=== PATIENT | male | born 1965 | race Caucasian/White ===

== ENCOUNTER 2019-01-05 12:00 | Day surgery (SDC) | payer BC ==
[2019-01-05] MEDS ORDERED: MIDAZOLAM 2 MG/2 ML VIAL IVP ONE (12:01)
[2019-01-05] MEDS ORDERED: fentaNYL 100 MCG/2 ML VIAL IVP ONE (12:01)
[2019-01-05] MEDS ORDERED: PROPOFOL 200 MG/20 ML VIAL IVP ONE (12:01)
[2019-01-05] MEDS ORDERED: LACTATED RINGERS 1,000 ML IV ONE ×2 (12:38→15:02)
--- NOTE | 2019-01-05 12:56 | ANESTHESIA ---
Pre-Anesthesia VS, & Labs - Diagnosis Hemorrhoids - Procedure Hemorrhoid banding Vital Signs: Temp Pulse Resp BP Pulse Ox 37.1 C 93 18 156/93 H 100 01/05/19 12:15 01/05/19 12:15 01/05/19 12:15 01/05/19 12:15 01/05/19 12:15 Height 6 ft 2 in Weight (kg) 106.7 kg - NPO >8 hours Home Medications and Allergies Home Medications: Ambulatory Orders Amlodipine Besylate 10 mg PO DAILY 12/27/18 Cyclobenzaprine [Flexeril] 10 mg PO TID PRN 12/27/18 Escitalopram Oxalate [Lexapro] 20 mg PO DAILY 12/27/18 Meloxicam 15 mg PO DAILY 12/27/18 Tramadol HCl 50 mg PO TID PRN 12/27/18 Trazodone HCl 150 mg PO QPM 12/27/18 Valsartan/Hydrochlorothiazide [Valsartan-Hctz 160-25 mg Tab] 1 each PO DAILY 12/27/18 Amlodipine Besylate 10 mg PO DAILY 12/27/18 Cyclobenzaprine [Flexeril] 10 mg PO TID PRN 12/27/18 Escitalopram Oxalate [Lexapro] 20 mg PO DAILY 12/27/18 Meloxicam 15 mg PO DAILY 12/27/18 Tramadol HCl 50 mg PO TID PRN 12/27/18 Trazodone HCl 150 mg PO QPM 12/27/18 Valsartan/Hydrochlorothiazide [Valsartan-Hctz 160-25 mg Tab] 1 each PO DAILY 12/27/18 Allergies/Adverse Reactions: Allergies Allergy/AdvReac Type Severity Reaction Status Date / Time No Known Drug Allergies Allergy Verified 12/27/18 13:58 Anes History & Medical History - Anesthetic History Anesthesia Complications: reports: No previous complications Family history of Anesthesia Complications: Denies Family history of Malignant Hyperthermia: Denies - Medical History Cardiovascular: reports: Hypertension, High cholesterol Pulmonary: reports: None Gastrointestinal: reports: Hiatal hernia Urinary: reports: None Musculoskeletal: reports: Osteoarthritis Endocrine/Autoimmune: reports: None Skin: reports: None - Surgical History General: Other Orthopedic: Spine surgery (cervical spine) Exam General: Alert, Oriented x3, Cooperative Dental: WNL Mouth Opening: Greater than 4 Fingerbreadths Neck Mobility: Reduced (side to side) Mallampati classification: II Thyromental Distance: 4-6 cm Respiratory: Lungs clear, Normal breath sounds, No respiratory distress Cardiovascular: Regular rate Neurological: Normal speech Cognitive Status: Within normal limits Plan Anesthesia Type: General (backup), MAC Consent for Procedure(s) Verified and Reviewed: Yes Code Status: Attempt Resuscitation ASA classification: 2-Mild systemic disease Is this case an emergency?: No
[2019-01-05] MEDS ORDERED: BUPIVACAINE 0.5%-EPI 1:200000 PF 30 ML VIAL ONE (14:35)
[2019-01-05] MEDS ORDERED: LIDOCAINE-MPF 1% 30 ML VIAL ONE (14:35)
[2019-01-05] MEDS ORDERED: IOVERSOL 320 100 ML VIAL IVP ONE ×2 (15:20→15:55)
[2019-01-05 15:21] LABS: BASOPHILS % (AUTO) 0.5 %; EOSINOPHILS # (AUTO) 0.3 10^3/uL (0.0-0.7); EOSINOPHILS % (AUTO) 3.4 %; HGB - HEMOGLOBIN 9.3 g/dL (14.0-18.0); LYMPHOCYTES # (AUTO) 1.6 10^3/uL (1.5-3.5); LYMPHOCYTES % (AUTO) 19.2 %; MEAN CORPUSCULAR HEMOGLOBIN 23.2 pg (27.0-31.0); MEAN CORPUSCULAR HGB CONC 32.4 g/dL (32.0-36.0); MEAN CORPUSCULAR VOLUME 71.6 fL (80.0-94.0); MEAN PLATELET VOLUME 8.3 fL (7.4-11.4); MONOCYTES # (AUTO) 0.6 10^3/uL (0.0-1.0); MONOCYTES % (AUTO) 7.1 %; NEUTROPHILS # (AUTO) 5.6 10^3/uL (1.5-6.6); NEUTROPHILS % (AUTO) 69.4 %; PLT - PLATELET COUNT 307 10^3/uL (130-450); RED BLOOD COUNT 4.01 10^6/uL (4.70-6.10); RED CELL DISTRIBUTION WIDTH 15.5 % (12.0-15.0); WHITE BLOOD COUNT 8.1 x10^3/uL (4.8-10.8)
[2019-01-05 15:33] LABS: ALBUMIN 3.6 g/dL (3.2-5.5); ALBUMIN/GLOBULIN RATIO 1.3 (1.0-2.2); BILIRUBIN,TOTAL 0.7 mg/dL (0.2-1.0); CALCIUM 8.5 mg/dL (8.5-10.3); CREATININE 0.6 mg/dL (0.6-1.2); TOTAL PROTEIN 6.3 g/dL (6.7-8.2)
--- NOTE | 2019-01-05 16:32 | CT Report ---
Reason: Rectal mass Procedure Date: 01/05/2019 Accession Number: [id number] / [id number] Procedure: CT - Abdomen/Pelvis W CPT Code: FULL RESULT: EXAM: CT ABDOMEN AND PELVIS EXAM DATE: 01/05/2019 03:54 PM. CLINICAL HISTORY: Rectal mass. COMPARISONS: None. TECHNIQUE: Routine helical CT imaging was performed through the abdomen and pelvis. IV contrast: Optiray 320 100 mL. Enteric contrast: No. Reconstructions: Coronal and sagittal. In accordance with CT protocol optimization, one or more of the following dose reduction techniques were utilized for this exam: automated exposure control, adjustment of mA and/or KV based on patient size, or use of iterative reconstructive technique. FINDINGS: Lung Bases: Unremarkable. Liver: No evidence of intrahepatic metastatic disease. There is an indeterminate approximate 10 x 29 mm diameter steve hepatis lymph node (image 30, series 3). Gallbladder/Bile Ducts: Unremarkable. Spleen: Normal. Pancreas: Normal. Adrenal Glands: There is an indeterminant 2 cm maximal diameter right adrenal mass; on postcontrast imaging, Hounsfield units = 25.2. Normal left adrenal. Kidneys: Normal. No masses or hydronephrosis. Peritoneal Cavity/Bowel: There is no pathologic abdominal or retroperitoneal adenopathy. There is an eccentric posterior rectal neoplasm with approximate 3 cm wall thickness. There is presacral haziness. There are numerous suspicious presacral and bilateral perirectal lymph nodes, most less than 10 mm diameter. There is a dominant 11 mm diameter node in the superior presacral space. Pelvic Organs: Unremarkable bladder and prostate gland. Vasculature: No aneurysms or other significant abnormality. Bones: No significant abnormality. Other: None. IMPRESSION: 1. Bulky rectal neoplasm as described above. 2. Numerous small suspicious presacral and bilateral perirectal lymph nodes. Consider PET/CT for staging. 3. No evidence of abdominal or retroperitoneal adenopathy. 4. Indeterminate steve hepatis lymph node as described above. 5. No evidence of intrahepatic metastatic disease. 6. There is an incidental 2 cm diameter indeterminate right adrenal mass, possibly representing an adenoma. Consider noncontrast CT to evaluate for intralesional fat. RADIA
[2019-01-05 16:54] VITALS: BP 133/80
== END 2019-01-05 12:01 | disposition home or self-care (01) ==
LOC: SDS 12:00
PROVIDERS: ATTEND Surgery
PROC: 0DBP8ZX Excision of Rectum, Via Natural or Artificial Opening Endoscopic, Diagnostic (ICD-10-PCS; principal; 2019-01-05 12:30)
DX: C20 Malignant neoplasm of rectum (principal); R59.0 Localized enlarged lymph nodes; E27.8 Other specified disorders of adrenal gland; F17.220 Nicotine dependence, chewing tobacco, uncomplicated; I10 Essential (primary) hypertension; Z79.899 Other long term (current) drug therapy
CPT/HCPCS: 36415; 45331; 74177; 80053; 82378; 85025; J7120; Q9967

== ENCOUNTER 2019-01-19 11:47 | Outpatient (CLI) | payer BC ==
[2019-01-19 13:22] LABS: CREATININE 0.6 mg/dL (0.6-1.2)
== END 2019-01-19 11:48 | disposition home or self-care (01) ==
LOC: LAB 11:47
PROVIDERS: ATTEND Surgery
DX: C20 Malignant neoplasm of rectum (principal)
CPT/HCPCS: 36415; 82565; 84520

== ENCOUNTER 2019-05-16 11:48 | Outpatient (CLI) | payer BC ==
[2019-05-16 12:20] LABS: BASOPHILS % (AUTO) 0.7 %; EOSINOPHILS # (AUTO) 0.1 10^3/uL (0.0-0.7); EOSINOPHILS % (AUTO) 1.2 %; HGB - HEMOGLOBIN 12.4 g/dL (14.0-18.0); LYMPHOCYTES # (AUTO) 0.6 10^3/uL (1.5-3.5); LYMPHOCYTES % (AUTO) 10.6 %; MEAN CORPUSCULAR HEMOGLOBIN 27.3 pg (27.0-31.0); MEAN CORPUSCULAR HGB CONC 33.6 g/dL (32.0-36.0); MEAN CORPUSCULAR VOLUME 81.1 fL (80.0-94.0); MEAN PLATELET VOLUME 8.3 fL (7.4-11.4); MONOCYTES # (AUTO) 0.5 10^3/uL (0.0-1.0); MONOCYTES % (AUTO) 8.5 %; NEUTROPHILS # (AUTO) 4.4 10^3/uL (1.5-6.6); NEUTROPHILS % (AUTO) 78.5 %; PLT - PLATELET COUNT 263 10^3/uL (130-450); RED BLOOD COUNT 4.55 10^6/uL (4.70-6.10); RED CELL DISTRIBUTION WIDTH 21.3 % (12.0-15.0); WHITE BLOOD COUNT 5.7 x10^3/uL (4.8-10.8)
[2019-05-16 12:40] LABS: INR 1.1 (0.8-1.2); PT - PROTHROMBIN TIME 12.4 secs (9.9-12.6)
[2019-05-16 12:41] LABS: ALBUMIN 4.1 g/dL (3.2-5.5); ALBUMIN/GLOBULIN RATIO 1.2 (1.0-2.2); BILIRUBIN,TOTAL 0.6 mg/dL (0.2-1.0); CALCIUM 9.6 mg/dL (8.5-10.3); CREATININE 0.7 mg/dL (0.6-1.2); TOTAL PROTEIN 7.4 g/dL (6.7-8.2)
[2019-05-16 12:52] LABS: HEMOGLOBIN A1C 0.42 g/dL; HEMOGLOBIN A1C % 5.4 % (4.6-6.2); PLATELET ESTIMATE, MANUAL NORMAL (130-450,000) (NORMAL); PLATELET MORPHOLOGY NORMAL APPEARANCE (NORMAL)
== END 2019-05-16 11:49 | disposition home or self-care (01) ==
LOC: LAB 11:48
PROVIDERS: ATTEND Surgery
DX: C20 Malignant neoplasm of rectum (principal); C77.5 Secondary and unspecified malignant neoplasm of intrapelvic lymph nodes
CPT/HCPCS: 36415; 80053; 83036; 85025; 85610; 93005

== ENCOUNTER 2019-07-29 08:07 | Day surgery (SDC) | payer BC ==
[2019-07-29] MEDS ORDERED: LIDOCAINE 1% 50 ML MDV ONE (08:22)
[2019-07-29] MEDS ORDERED: ceFAZolin 1 GM VIAL ONE (08:23)
[2019-07-29] MEDS ORDERED: LACTATED RINGERS 1,000 ML IV ONE (08:31)
[2019-07-29] MEDS ORDERED: BUPIVACAINE 0.5% PF 30 ML VIAL ONE (08:33)
--- NOTE | 2019-07-29 08:39 | ANESTHESIA ---
Pre-Anesthesia VS, & Labs - Diagnosis Rectal Cancer - Procedure mediport placement Vital Signs: Temp Pulse Resp BP Pulse Ox 36.5 C 95 18 137/92 H 100 07/29/19 08:05 07/29/19 08:05 07/29/19 08:05 07/29/19 08:05 07/29/19 08:05 Height 6 ft 2 in Weight (kg) 111.5 kg - NPO >8 hours Home Medications and Allergies Home Medications: Ambulatory Orders Famotidine 20 mg PO 07/29/19 Amlodipine Besylate 10 mg PO DAILY 12/27/18 Cyclobenzaprine [Flexeril] 10 mg PO TID PRN 12/27/18 Escitalopram Oxalate [Lexapro] 20 mg PO DAILY 12/27/18 Tramadol HCl 50 mg PO TID PRN 12/27/18 Trazodone HCl 150 mg PO QPM 12/27/18 Valsartan/Hydrochlorothiazide [Valsartan-Hctz 160-25 mg Tab] 1 each PO DAILY 12/27/18 Famotidine 20 mg PO 07/29/19 Allergies/Adverse Reactions: Allergies Allergy/AdvReac Type Severity Reaction Status Date / Time No Known Drug Allergies Allergy Verified 12/27/18 13:58 Anes History & Medical History - Anesthetic History Anesthesia Complications: reports: No previous complications - Medical History Cardiovascular: reports: Hypertension, High cholesterol Pulmonary: reports: None Gastrointestinal: reports: Hiatal hernia Urinary: reports: None Musculoskeletal: reports: Osteoarthritis Endocrine/Autoimmune: reports: None Skin: reports: None - Surgical History General: Other Orthopedic: Spine surgery Exam General: Alert Dental: WNL Mallampati classification: II Thyromental Distance: greater than 6 cm Respiratory: Lungs clear Plan Anesthesia Type: General, MAC Consent for Procedure(s) Verified and Reviewed: Yes Code Status: Attempt Resuscitation ASA classification: 2-Mild systemic disease Is this case an emergency?: No
[2019-07-29] MEDS ORDERED: CEFAZOLIN SODIUM IN 0.9 % NACL 2 GM/100 ML BAG IV ONE (08:45)
[2019-07-29] MEDS ORDERED: MIDAZOLAM 2 MG/2 ML VIAL IVP ONE (08:54)
[2019-07-29] MEDS ORDERED: PROPOFOL 200 MG/20 ML VIAL IVP ONE (08:54)
[2019-07-29] MEDS ORDERED: LIDOCAINE-MPF 2% 5 ML VIAL IM ONE (08:54)
[2019-07-29] MEDS ORDERED: KETAMINE 500 MG/10 ML VIAL IVP ONE (08:54)
[2019-07-29] MEDS ORDERED: fentaNYL 100 MCG/2 ML VIAL IVP ONE (08:54)
[2019-07-29] MEDS ORDERED: BUPIVACAINE 0.5% PF 30 ML VIAL INFIL ONE (09:07)
[2019-07-29] MEDS ORDERED: LIDOCAINE 1% 50 ML MDV SUBQ ONE (09:08)
[2019-07-29] MEDS ORDERED: IBUPROFEN 600 MG TABLET PO PRN (10:36)
[2019-07-29] MEDS ORDERED: ACETAMINOPHEN 325 MG TABLET PO PRN (10:36)
[2019-07-29] MEDS ORDERED: oxyCODONE 5 MG TABLET PO PRN (10:36)
[2019-07-29] MEDS ORDERED: KETOROLAC 15 MG/ML VIAL ONE (10:44)
[2019-07-29] MEDS ORDERED: ACETAMINOPHEN 1,000 MG/100 ML 100 ML IV ONE (10:44)
[2019-07-29] MEDS ORDERED: oxyCODONE 5 MG TABLET ONE (10:56)
[2019-07-29 11:44] VITALS: BP 138/98
--- NOTE | 2019-07-29 15:12 | OPERATIVE REPORT ---
DATE OF SERVICE: 07/29/2019 Physician: Leif Valladares MD PREOPERATIVE DIAGNOSIS: History of rectal cancer and need for adjuvant chemotherapy. POSTOPERATIVE DIAGNOSIS: History of rectal cancer and need for adjuvant chemotherapy. PROCEDURE PERFORMED: Right subclavian 8-Setswana PowerPort placement. Fluoroscopic interpretation. SURGEON: Isma Valladares MD HEEL BLACKER: None. ANESTHESIA: Monitored anesthesia care. IV Sedation and local anesthesia. COMPLICATIONS: None. FINDINGS: Good PowerPort placement with the tip at the junction of the superior vena cava and the atrium. The PowerPort aspirated and flushed very easily at completion. ESTIMATED BLOOD LOSS: 50 mL INDICATIONS: The patient is a 54-year-old gentleman with history of rectal cancer. He underwent neoadjuvant chemotherapy, radiation and surgery. He has recovered nicely and now presents for Port-A-Cath placement for adjuvant chemotherapy. Risks discussed. Alternatives discussed. All questions answered and consent obtained. DESCRIPTION OF PROCEDURE: The patient was properly identified, brought to the operating room and placed in supine position. Monitored anesthesia care and IV sedation was given. Both arms were tucked. A towel roll was placed under his upper spine. He was prepped and draped in a sterile fashion. Sequential compression devices were used and preoperative IV antibiotics were given. The left subclavian vein was easily accessed on first pass. Guidewire was placed, which would cross the midline; however, would not go down the superior vena cava. The guidewire was drawn back and manipulated multiple times while under fluoroscopic guidance; however, still would not go down towards the heart. I did not believe accessing the left subclavian from a different position would be helpful. The right subclavian vein was then easily accessed again first pass of the needle. Guidewire was placed. A 3.5 cm incision was then made in the right upper chest and pocket created for the port. Port-A-Cath tubing was pulled through a subcutaneous tunnel up towards a guidewire. A dilator pull-away sheath was then placed and Port-A-Cath tubing easily placed. Port-A-Cath tubing was manipulated while under fluoroscopy until the tip was at the junction of the atrium and superior vena cava and in a location where we would aspirate easily. Port catheter was flushed with saline, multiple times. Port catheter was then trimmed to size and assembled. The port was secured to the subcutaneous tissue with 2 interrupted 4-0 Prolene sutures. The port catheter again aspirated and flushed with heparin. Dermis was closed with multiple interrupted 4-0 Vicryl suture. Skin was closed with buried interrupted or running 4-0 Monocryl subcuticular suture. Dressings were applied. He tolerated the procedure very well, was awakened and brought to recovery in good condition. TD: 07/29/2019 13:28 CAESAR
--- NOTE | 2019-08-01 02:24 | XRAY Report ---
Reason: PORTACATH Procedure Date: 07/29/2019 Accession Number: [id number] / [id number] Procedure: FL - OR Port-A-Cath CPT Code: Final Report FULL RESULT: EXAM: FLUOROSCOPIC GUIDANCE EXAM DATE: 07/29/2019 12:59 PM. CLINICAL HISTORY: PORTACATHETER. COMPARISON: None. FINDINGS IMPRESSION: Fluoroscopic guidance provided for Port-A-Cath placement. Total fluoroscopy time: 0.4 minutes . Number of images: 5. Please refer to the report of the procedure performing provider with regards to pertinent findings, technique and instrument location.
== END 2019-07-29 08:08 | disposition home or self-care (01) ==
LOC: SDS 08:07
PROVIDERS: ATTEND Surgery
PROC: 02HV33Z Insertion of Infusion Device into Superior Vena Cava, Percutaneous Approach (ICD-10-PCS; principal; 2019-07-29 09:00)
DX: C20 Malignant neoplasm of rectum (principal); I10 Essential (primary) hypertension; F17.220 Nicotine dependence, chewing tobacco, uncomplicated
CPT/HCPCS: 36561; A9270; C1788; J0131; J0690; J7120

== ENCOUNTER 2020-04-12 09:23 | Day surgery (SDC) | payer BC ==
[2020-04-12] MEDS ORDERED: LACTATED RINGERS 1,000 ML IV ONE ×2 (09:57→11:04)
[2020-04-12] MEDS ORDERED: fentaNYL 250 MCG/5 ML VIAL ONE (10:30)
[2020-04-12] MEDS ORDERED: MIDAZOLAM 2 MG/2 ML VIAL ONE ×3 (10:30→10:48)
[2020-04-12 11:17] VITALS: BP 133/84
--- OUTSIDE RECORDS SUMMARY | 2020-04-18 01:04 | EXTERNAL MEDICAL SUMMARY RPT | Continuity of Care Document ---
:1965 Demographics Phone Unavailable Preferred Language Tongan Marital Status Unknown Episcopal Affiliation Unknown Race Unknown Ethnic Group Unknown Author Organization [facility] Address [address] [place] [address] Phone Care Team Providers Name Role Phone Holiday Unavailable Unavailable PA-C Unavailable Unavailable Problems date description facility 2019-01-05 12:00 MALIGNANT NEOPLASM OF RECTUM [facility] 2019-01-05 12:00 OTHER SPECIFIED DISORDERS OF [facility] ADRENAL GLAND 2019-01-05 12:00 NICOTINE DEPENDENCE, CHEWING [facility] TOBACCO, UNCOMPLICATED 2019-01-05 12:00 ESSENTIAL (PRIMARY) [facility] HYPERTENSION 2019-01-05 12:00 LOCALIZED ENLARGED LYMPH NODES [facility] 2019-01-05 12:00 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 [facility] THERAPY 2019-01-19 11:47 MALIGNANT NEOPLASM OF RECTUM [facility] 2019-05-16 11:48 MALIGNANT NEOPLASM OF RECTUM [facility] 2019-05-16 11:48 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 2019-07-29 08:07 MALIGNANT NEOPLASM OF RECTUM [facility] 2019-07-29 08:07 NICOTINE DEPENDENCE, CHEWING [facility] TOBACCO, UNCOMPLICATED 2019-07-29 08:07 ESSENTIAL (PRIMARY) [facility] HYPERTENSION 2020-04-04 00:00:00 Health-related behavior [facility] [place] [facility] 2020-04-04 00:00:00 Tobacco use and exposure [facility] [place] [facility] 2020-04-04 00:00:00 Exercise [facility] 2020-04-04 00:00:00 Details of drug misuse behavior [facility] [place] [facility] 2020-04-04 00:00:00 [facility] 2020-04-04 00:00:00 Tobacco smoking status [facility] [place] [facility] 2020-04-04 00:00:00 Total [facility]? [facility] [place] [facility] 2020-04-04 00:00:00 Former sm[facility] Allergies date description facility ADHESIVE \T\ [facility] ER[facility]THROM[facility]CIN [facility] L[facility]IL [facility] MOR[facility]INE [facility] OXYCODONE [facility] POLLEN EXTRACT [facility] PRED[facility]ISONE [facility] SULFASALAZINE [facility] NO KNOWN ENVIRONMENTAL ALLERGIES [facility] AMOXICILLIN TRIHYDRATE [facility] PENICILLINS [facility] POTASSIUM CLAVULANATE [facility] SERTRALINE HCL [facility] Medications date description facility 2020-02-15 00:00:00 null [facility] [place] [facility] 2020-03-14 00:00:00 [facility] [place] [facility] 2020-03-14 00:00:00 [facility] [place] [facility] 2020-03-14 00:00:00 CYCLOBENZAPRINE HCL [facility] [place] [facility] 2020-03-14 00:00:00 CYCLOBENZAPRINE HCL [facility] [place] [facility] 2020-04-04 00:00:00 null [facility] [place] [facility] 2020-04-04 00:00:00 null [facility] [place] [facility] 2020-04-04 00:00:00 NA SULFATE-K SULFATE-MG SULF [facility] [place] [facility] 2020-04-04 00:00:00 NA SULFATE-K SULFATE-MG SULF [facility] [place] [facility] Social History date description facility 2020-04-04 00:00:00 [facility] Social History date description facility 2020-04-04 00:00:00 [facility] [id number]
== END 2020-04-12 09:24 | disposition home or self-care (01) ==
LOC: SDS 09:23
PROVIDERS: ATTEND Surgery
PROC: 0DBL8ZZ Excision of Transverse Colon, Via Natural or Artificial Opening Endoscopic (ICD-10-PCS; 2020-04-12)
PROC: 0DBK8ZZ Excision of Ascending Colon, Via Natural or Artificial Opening Endoscopic (ICD-10-PCS; principal; 2020-04-12 10:30)
DX: Z08 Encounter for follow-up examination after completed treatment for malignant neoplasm (principal); Z85.048 Personal history of other malignant neoplasm of rectum, rectosigmoid junction, and anus; D12.2 Benign neoplasm of ascending colon; D12.3 Benign neoplasm of transverse colon; I10 Essential (primary) hypertension
CPT/HCPCS: 45380; J3010; J7120; 88305

== ENCOUNTER 2020-08-07 10:51 | Outpatient (CLI) | payer BC ==
[2020-08-07 11:09] LABS: BASOPHILS % (AUTO) 0.7 %; EOSINOPHILS # (AUTO) 0.1 10^3/uL (0.0-0.7); EOSINOPHILS % (AUTO) 1.8 %; HCT - HEMATOCRIT 41.5 % (42.0-52.0); HGB - HEMOGLOBIN 14.6 g/dL (14.0-18.0); LYMPHOCYTES # (AUTO) 1.3 10^3/uL (1.5-3.5); LYMPHOCYTES % (AUTO) 20.3 %; MEAN CORPUSCULAR HEMOGLOBIN 28.3 pg (27.0-31.0); MEAN CORPUSCULAR HGB CONC 35.2 g/dL (32.0-36.0); MEAN CORPUSCULAR VOLUME 80.4 fL (80.0-94.0); MEAN PLATELET VOLUME 8.6 fL (7.4-11.4); MONOCYTES # (AUTO) 0.6 10^3/uL (0.0-1.0); MONOCYTES % (AUTO) 9.8 %; NEUTROPHILS # (AUTO) 4.1 10^3/uL (1.5-6.6); NEUTROPHILS % (AUTO) 67.1 %; PLT - PLATELET COUNT 244 10^3/uL (130-450); RED BLOOD COUNT 5.16 10^6/uL (4.70-6.10); RED CELL DISTRIBUTION WIDTH 14.5 % (12.0-15.0); WHITE BLOOD COUNT 6.2 x10^3/uL (4.8-10.8)
[2020-08-07 11:28] LABS: ALBUMIN 4.6 g/dL (3.2-5.5); ALBUMIN/GLOBULIN RATIO 1.5 (1.0-2.2); ALKALINE PHOSPHATASE 104 IU/L (42-121); ALT ALANINE AMINOTRANSFERASE 32 IU/L (10-60); AST ASPARTATE AMINOTRANSFERASE 28 IU/L (10-42); BILIRUBIN,TOTAL 0.6 mg/dL (0.2-1.0); BUN - BLOOD UREA NITROGEN 15 mg/dL (6-20); CALCIUM 9.7 mg/dL (8.5-10.3); CARBON DIOXIDE - CO2 25 mmol/L (21-32); CHLORIDE 105 mmol/L (101-111); CHOL/HDL RATIO 3.9 (<5.0); CHOLESTEROL 206 mg/dL; CREATININE 0.6 mg/dL (0.6-1.2); GFR - MDRD 141 (>89); GLUCOSE 145 mg/dL (70-100); HDL CHOLESTEROL 53 mg/dL; LDL CHOLESTEROL,CALCULATED 114 mg/dL; LDL/HDL RATIO 2.2 (<3.6); POTASSIUM 3.8 mmol/L (3.5-5.0); SODIUM 139 mmol/L (135-145); TOTAL PROTEIN 7.6 g/dL (6.7-8.2); TRIGLYCERIDES 193 mg/dL; VLDL CHOLESTEROL 39 mg/dL
== END 2020-08-07 10:52 | disposition home or self-care (01) ==
LOC: LAB 10:51
PROVIDERS: ATTEND Family Medicine
DX: I10 Essential (primary) hypertension (principal); Z12.5 Encounter for screening for malignant neoplasm of prostate
CPT/HCPCS: 36415; 80053; 80061; 83721; 84153; 85025

== ENCOUNTER 2020-08-07 11:08 | Outpatient (CLI) | payer BC ==
--- NOTE | 2020-08-07 11:23 | XRAY Report ---
PROCEDURE: Shoulder 2 View LT INDICATIONS: LT SHOULDER PAIN TECHNIQUE: 2 views of the shoulder were acquired. COMPARISON: None. FINDINGS: Bones: No fractures or dislocations. No suspicious bony lesions. Visualized ribs appear intact. P eriarticular osteophyte formation at the acromioclavicular and glenohumeral joints. Soft tissues: No suspicious soft tissue calcifications. IMPRESSION: Osteoarthritis. No acute fracture. No osseous lesion. If symptoms and/or clinical suspic ion for pathology continue, further assessment with repeat plain films, or advanced imaging (e.g., CT , MRI, or bone scan) is recommended for further assessment. Reviewed by: Terrance Steel MD on 08/07/2020 11:21 AM PDT Approved by: Terrance Steel MD on 08/07/2020 11:21 AM PDT Station ID: [id number]
== END 2020-08-07 11:09 | disposition home or self-care (01) ==
LOC: DI 11:08
PROVIDERS: ATTEND Family Medicine
DX: M19.012 Primary osteoarthritis, left shoulder (principal); I10 Essential (primary) hypertension; Z12.5 Encounter for screening for malignant neoplasm of prostate
CPT/HCPCS: 36415; 80053; 80061; 83721; 84153; 85025

== ENCOUNTER 2020-09-11 07:48 | Outpatient (CLI) | payer BC ==
--- NOTE | 2020-09-11 11:39 | XRAY Report ---
PROCEDURE: Shoulder 3 View LT INDICATIONS: SHOULDER JOINT PAIN, LEFT TECHNIQUE: 4 views of the shoulder were acquired. COMPARISON: None. FINDINGS: Bones: No fractures. There Is flattening of the glenoid fossa and mild inferior sclerosis. There is asymmetric joint space loss of the glenohumeral joint inferiorly and joint space widening superiorly. Slight flattening of the humeral head with inferior spur formation. No glenohumeral joint dislocatio n. Mild spurring at the acromioclavicular joint. No suspicious bony lesions. Visualized ribs appear intact. Soft tissues: No suspicious soft tissue calcifications. IMPRESSION: 1. Moderate glenohumeral joint osteoarthritic changes, potentially remote posttraumatic. 2. No dislocation. Reviewed by: Landy Carson MD on 09/11/2020 11:37 AM PDT Approved by: Landy Carson MD on 09/11/2020 11:37 AM PDT Station ID: [id number]
== END 2020-09-11 23:59 | disposition home or self-care (01) ==
LOC: DI.N 07:48
PROVIDERS: ATTEND Physician Assistant
DX: M19.012 Primary osteoarthritis, left shoulder (principal)

== ENCOUNTER 2020-12-04 09:44 | Outpatient (CLI) | payer BC ==
[2020-12-04] MEDS ORDERED: TRIAMCINOLONE 40 MG/ML VIAL ONE (09:55)
[2020-12-04] MEDS ORDERED: BUFFERED LIDOCAINE 10 ML SYRINGE ONE (09:55)
[2020-12-04] MEDS ORDERED: ROPIVACAINE 0.5% PF 20 ML AMPULE ONE (09:55)
[2020-12-04] MEDS ORDERED: TRIAMCINOLONE 40 MG/ML VIAL IM ONE (10:40)
[2020-12-04] MEDS ORDERED: iohexoL-240 20 ML VIAL IVP ONE (10:40)
[2020-12-04] MEDS ORDERED: BUFFERED LIDOCAINE 10 ML SYRINGE IU ONE (10:41)
[2020-12-04] MEDS ORDERED: ROPIVACAINE 0.5% PF 20 ML AMPULE SUBQ ONE (10:46)
--- NOTE | 2020-12-04 13:27 | XRAY Report ---
PROCEDURE: Inj/Aspiration Major Joint INDICATIONS: PRIMARY OSTEOARTHRITIS, LEFT SHOULDER FLUORO TIME: FLUORO TIME: 0.3 min and NUMBER IMAGES: 2 TECHNIQUE: The indications, alternatives, benefits, risks, and complications of the procedure were explained to the patient. Written informed consent was obtained and placed in the chart. The patient was placed in an appropriate position on the fluoroscopy table, and a site was chosen for percutaneous access un jose fluoroscopic guidance. Local anesthetic was administered using a 1% lidocaine solution. A hypod ermic or spinal needle was then used to access the symptomatic joint. Intra-articular location of th e needle tip was confirmed by injecting a small amount of contrast, followed by steroid administratio n. The needle was then withdrawn, and a bandage applied to the puncture site. FINDINGS: Joint injected: Left glenohumeral Medications injected: amount mL of 40 mg/mL Kenalog and 0.5% Ropivacaine mixture. Complications: None. IMPRESSION: Successful fluoroscopically guided administration of steroid and anaesthetic solution into the left g lenohumeral joint. Reviewed by: Rolly Adair MD on 12/04/2020 1:26 PM PDT Approved by: Rolly Adair MD on 12/04/2020 1:26 PM PDT Station ID: [id number]
== END 2020-12-04 09:45 | disposition home or self-care (01) ==
LOC: DI 09:44
PROVIDERS: ATTEND Physician Assistant
DX: M19.012 Primary osteoarthritis, left shoulder (principal)
CPT/HCPCS: 20610; Q9966

== ENCOUNTER 2021-04-03 07:25 | Emergency (ER) | payer BC ==
[2021-04-03] MEDS ORDERED: AMOX/CLAV 875 MG/125 MG TABLET PO STA (07:32)
--- NOTE | 2021-04-03 07:34 | ED Physician Documentation ---
PD HPI HEENT - Stated complaint Stated Complaint: SINUS CONGESTIONS - Chief complaint Chief Complaint: Resp - History obtained from History obtained from: Patient, Family - Additional information Additional information: 55-year-old gentleman with colon cancer in remission and hypertension presents with sinus congestion especially on the left for the last week. Is not associated with fevers. He took a home Covid test that was negative. He has a mild cough and postnasal drip. His is worried because he was appearing short of breath last night, but he says it is just from anxiety because he cannot breathe through his mouth and he is so stuffed up. He denies actual shortness of breath. Review of Systems Constitutional: denies: Fever, Chills Nose: reports: Rhinorrhea / runny nose, Congestion, Sinus pressure / pain Throat: denies: Sore throat Cardiac: denies: Chest pain / pressure, Palpitations Respiratory: reports: Cough. denies: Dyspnea PD PAST MEDICAL HISTORY - Past Medical History Cardiovascular: Hypertension, High cholesterol Respiratory: None Endocrine/Autoimmune: None GI: Hiatal hernia : None HEENT: Chronic vision loss Psych: Anxiety, Post traumatic stress disorder Musculoskeletal: Osteoarthritis Derm: None - Past Surgical History General: Colonoscopy, Other Ortho: Spine surgery - Present Medications Home Medications: Ambulatory Orders Medication Instructions Recorded Confirmed Amlodipine Besylate 10 mg PO DAILY 12/27/18 04/03/21 Cyclobenzaprine [Flexeril] 10 mg PO TID PRN 12/27/18 04/03/21 Escitalopram Oxalate [Lexapro] 20 mg PO DAILY 12/27/18 04/03/21 Valsartan/Hydrochlorothiazide 1 each PO DAILY 12/27/18 04/03/21 [Valsartan-Hctz 160-25 mg Tab] Famotidine 20 mg PO DAILY 07/29/19 04/03/21 Amox/Clav 875/125 [Augmentin] 1 each PO Q12H #20 tablet 04/03/21 Fluticasone [Flonase] 1 sprays YASMIN BID #16 gm 04/03/21 Metoprolol Succinate [Toprol Xl] 50 mg PO DAILY 04/03/21 04/03/21 Zolpidem [Ambien] 5 mg PO HS 04/03/21 04/03/21 - Allergies Allergies/Adverse Reactions: Allergies Allergy/AdvReac Type Severity Reaction Status Date / Time No Known Drug Allergies Allergy Verified 04/03/21 07:31 PD ED PE NORMAL - Vitals Vital signs reviewed: Yes - General General: Alert and oriented X 3, No acute distress - HEENT HEENT: Pharynx benign, Other (Tenderness over the left maxillary sinus) - Neck Neck: Supple, no meningeal sign, No bony TTP - Cardiac Cardiac: RRR, No murmur - Respiratory Respiratory: No respiratory distress, Clear bilaterally - Abdomen Abdomen: Non tender - Extremities Extremities: No edema, No calf tenderness / cord - Neuro Neuro: Alert and oriented X 3 - Psych Psych: Normal mood, Normal affect Results - Vitals Vitals: Vital Signs - 24 hr 04/03/21 07:27 Temperature 35.9 C L Heart Rate 99 Respiratory 20 Rate Blood Pressure 154/97 H O2 Saturation 99 Oxygen O2 Source Room air Departure - Departure Disposition: 01 Home, Self Care Clinical Impression: Sinusitis Qualifiers: Sinusitis location: maxillary Chronicity: acute Recurrence: recurrent Qualified Code(s): J01.01 - Acute recurrent maxillary sinusitis Condition: Good Record reviewed to determine appropriate education?: Yes Instructions: ED Sinusitis Abx Tx Prescriptions: Amox/Clav 875/125 [Augmentin] 1 each PO Q12H #20 tablet Fluticasone [Flonase] 1 sprays YASMIN BID #16 gm Comments: Your prescriptions were sent electronically to [facility]. Return for new or worsening symptoms. Follow-up with your doctor in a week if not improving. Discharge Date/Time: 04/03/21 07:42
[2021-04-03 07:38] VITALS: BP 154/97
== END 2021-04-03 07:42 | disposition home or self-care (01) ==
LOC: ED 07:25
DX: J01.01 Acute recurrent maxillary sinusitis (principal); I10 Essential (primary) hypertension
CPT/HCPCS: 99282; 99283; A9270

== ENCOUNTER 2021-05-20 09:32 | Outpatient (CLI) | payer BC ==
[~2021-05-20 09:32] MED LIST: GADOBUTROL 7.5 MMOL/7.5 ML VIAL ONE; IOTHALAMATE MEGLUMINE 50 ML VIAL ONE; lidocaine 1% 20 ML MDV ONE
[2021-05-20] MEDS ORDERED: GADOBUTROL 7.5 MMOL/7.5 ML VIAL IVP ONE (12:14)
[2021-05-20] MEDS ORDERED: lidocaine 1% 20 ML MDV SUBQ ONE (12:16)
[2021-05-20] MEDS ORDERED: IOTHALAMATE MEGLUMINE 50 ML VIAL IVP ONE (12:18)
--- NOTE | 2021-05-20 14:25 | XRAY Report ---
PROCEDURE: Arthrogram Needle Placement INDICATIONS: IMPINGEMENT SYNDROME OF LEFT SHOULDER TECHNIQUE: The indications, alternatives, benefits, risks, and complications of the procedure were explained to the patient. Written informed consent was obtained and placed in the chart. The shoulder was examin ed fluoroscopically and a site for needle placement chosen for entry into the glenohumeral joint from an anterior approach. The skin was prepped and draped in the usual fashion, and 1% lidocaine infilt rated from skin down to joint capsule. A spinal needle was inserted into the glenohumeral joint, and a small amount of iodinated contrast media injected to confirm intra-articular placement of the need le tip. This was followed by approximately 12 ml of saline/gadolinium (20cc normal saline/0.2 gadoli nium) contrast solution. The needle was removed and a dressing was applied. The patient was given postprocedural instructions and sent to the MRI suite for imaging. FINDINGS: A single fluoroscopic spot image demonstrates intra-articular location of injected iodinated contrast . IMPRESSION: Successful fluoroscopically guided administration of iodinated contrast solution into the shoulder selma int for MR arthrogram. Reviewed by: Landy Carson MD on 05/20/2021 2:23 PM PST Approved by: Landy Carson MD on 05/20/2021 2:23 PM PST Station ID: [id number]
--- NOTE | 2021-05-20 16:44 | MRI Report ---
PROCEDURE: Arthrogram Shoulder LT INDICATIONS: IMPINGEMENT SYNDROME OF LEFT SHOULDER TECHNIQUE: After the administration of 12 mL of dilute intra-articular Gadolinium contrast, oblique coronal T1 a nd T2 spin echo with fat saturation, oblique sagittal T1 spin echo with and without fat saturation, o blique sagittal T2 fast spin echo with fat saturation, axial T1 spin echo with fat saturation through the shoulder. COMPARISON: Left shoulder x-ray 09/11/2020. FINDINGS: Image quality: Diagnostic. Rotator cuff: There is mild to moderate tendinopathy of the supraspinatus and infraspinatus which nacho ear intact. The subscapularis also demonstrates mild to moderate tendinopathy and also appears grossl y intact. The teres minor appear intact. No rotator cuff muscle atrophy on sagittal images. Bones and bursae: No bone marrow contusions or fractures. There is moderate acromioclavicular joint degeneration. The acromion demonstrates conventional anatomy, without an os acromiale. There is mode rate to severe glenohumeral joint degeneration with moderate to severe cartilage thinning, bony remod eling along the articular surfaces, subchondral edema, and osteophytosis. Multiple small filling defe cts are demonstrated within the glenohumeral joint consistent with synovitis or small joint bodies. Capsule and soft tissues: Mild degenerative tearing demonstrated within the posterior, posterior inf erior, and inferior labrum. The glenohumeral ligaments appear intact. The long head of the biceps te ndon demonstrates normal location and morphology. The biceps noris appears intact within the rotato r interval. IMPRESSION: 1. Moderate to severe glenohumeral joint degeneration. 2. Moderate acromioclavicular joint degeneration. 3. Mild degenerative tearing of the labrum as described. 4. Tendinopathy of the supraspinatus, infraspinatus, and subscapularis which appear intact. Reviewed by: Jaspreet Ang MD on 05/20/2021 4:43 PM PST Approved by: Jaspreet Ang MD on 05/20/2021 4:43 PM PST Station ID: [id number]
== END 2021-05-20 09:33 | disposition home or self-care (01) ==
LOC: DI 09:32
PROVIDERS: ATTEND Physician Assistant
DX: M19.012 Primary osteoarthritis, left shoulder (principal); S43.492A Other sprain of left shoulder joint, initial encounter; M75.82 Other shoulder lesions, left shoulder
CPT/HCPCS: 23350; 73222; 77002; A9585; Q9961

== ENCOUNTER 2021-10-21 11:05 | Day surgery (SDC) | payer BC ==
--- NOTE | 2021-10-21 11:33 | ANESTHESIA ---
Pre-Anesthesia VS, & Labs - Diagnosis hx colon cancer - Procedure colonoscopy Vital Signs: Temp Pulse Resp BP Pulse Ox 36.3 C L 83 17 148/89 H 100 10/21/21 11:22 10/21/21 11:22 10/21/21 11:22 10/21/21 11:22 10/21/21 11:22 Height: 6 ft 2 in Weight (kg): 115.2 kg Body Mass Index: 32.5 BMI Classification: Obese - NPO >8 hours Last Fluid Intake: am prep - Lab Results Lab results reviewed: Yes Home Medications and Allergies Amlodipine Besylate 10 mg PO DAILY 12/27/18 Cyclobenzaprine [Flexeril] 10 mg PO TID PRN 12/27/18 Escitalopram Oxalate [Lexapro] 20 mg PO DAILY 12/27/18 Valsartan/Hydrochlorothiazide [Valsartan-Hctz 160-25 mg Tab] 1 each PO DAILY 12/27/18 Famotidine 20 mg PO DAILY 07/29/19 Metoprolol Succinate [Toprol Xl] 50 mg PO DAILY 04/03/21 Zolpidem [Ambien] 5 mg PO HS 04/03/21 Allergies/Adverse Reactions: Allergies Allergy/AdvReac Type Severity Reaction Status Date / Time No Known Drug Allergies Allergy Verified 04/03/21 07:31 Anes History & Medical History - Anesthetic History Anesthesia Complications: reports: No previous complications Family history of Anesthesia Complications: Denies Family history of Malignant Hyperthermia: Denies - Medical History Cardiovascular: reports: Hypertension, High cholesterol Pulmonary: reports: None Gastrointestinal: reports: Hiatal hernia Urinary: reports: None Musculoskeletal: reports: Osteoarthritis Endocrine/Autoimmune: reports: None Skin: reports: None Smoking Status: Current some day smoker Psychosocial: reports: Cannabis History of Cancer?: Yes (colon, rectal) - Surgical History General: reports: Bowel surgery, Colonoscopy, Other Orthopedic: reports: Spine surgery Exam General: Alert, Oriented x3, Cooperative Dental: WNL Mouth Opening: Greater than 4 Fingerbreadths Neck Mobility: Normal Mallampati classification: II Thyromental Distance: 4-6 cm Respiratory: Lungs clear, Normal breath sounds, No respiratory distress Cardiovascular: Regular rate Neurological: Normal speech Mental/Cognitive Status: Alert/Oriented X3, Normal for patient Cognitive Status: Within normal limits Plan Anesthesia Type: Total IV Consent for Procedure(s) Verified and Reviewed: Yes Code Status: Attempt Resuscitation ASA classification: 2-Mild systemic disease Is this case an emergency?: No
[2021-10-21] MEDS ORDERED: LACTATED RINGERS 1,000 ML IV ONE (11:34)
[2021-10-21] MEDS ORDERED: PROPOFOL 200 MG/20 ML VIAL IVP ONE ×2 (12:20→12:27)
[2021-10-21] MEDS ORDERED: PROPOFOL 500 MG/50 ML 500 MG/50 ML VIAL ONE (12:41)
[2021-10-21] MEDS ORDERED: LACTATED RINGERS 700 ML IV ONE (12:55)
[2021-10-21 12:58] VITALS: BP 117/77
--- NOTE | 2021-10-21 14:18 | ANESTHESIA POST OP EVALUATION ---
Anesthesia Post Eval - Post Anesthesia Eval Vitals: Last Vital Signs Temp 36.6 C 10/21/21 12:57 Pulse 78 10/21/21 12:57 Resp 16 10/21/21 12:57 BP 117/77 10/21/21 12:57 Pulse Ox 98 10/21/21 12:57 CV Function Including HR & BP: Stable Pain Control: Satisfactory Nausea & Vomiting: Negative Mental Status: Baseline Respiratory Status: Airway Patent Hydration Status: Satisfactory Anesthesia Complications: None
== END 2021-10-21 11:06 | disposition home or self-care (01) ==
LOC: SDS 11:05
PROVIDERS: ATTEND Surgery
DX: Z12.11 Encounter for screening for malignant neoplasm of colon (principal); K57.30 Diverticulosis of large intestine without perforation or abscess without bleeding; E66.9 Obesity, unspecified; I10 Essential (primary) hypertension; F17.200 Nicotine dependence, unspecified, uncomplicated; Z68.33 Body mass index [BMI] 33.0-33.9, adult; Z85.048 Personal history of other malignant neoplasm of rectum, rectosigmoid junction, and anus; Z92.21 Personal history of antineoplastic chemotherapy
CPT/HCPCS: 45378; J7120

== ENCOUNTER 2021-12-23 08:13 | Outpatient (CLI) | payer BC ==
[2021-12-23 08:25] LABS: BASOPHILS # (AUTO) 0.1 10^3/uL (0.0-0.1); BASOPHILS % (AUTO) 0.7 %; EOSINOPHILS # (AUTO) 0.1 10^3/uL (0.0-0.7); EOSINOPHILS % (AUTO) 1.6 %; HCT - HEMATOCRIT 43.3 % (42.0-52.0); HGB - HEMOGLOBIN 14.9 g/dL (14.0-18.0); LYMPHOCYTES # (AUTO) 1.3 10^3/uL (1.5-3.5); LYMPHOCYTES % (AUTO) 18.7 %; MEAN CORPUSCULAR HEMOGLOBIN 28.3 pg (27.0-31.0); MEAN CORPUSCULAR HGB CONC 34.4 g/dL (32.0-36.0); MEAN CORPUSCULAR VOLUME 82.3 fL (80.0-94.0); MEAN PLATELET VOLUME 8.5 fL (7.4-11.4); MONOCYTES # (AUTO) 0.4 10^3/uL (0.0-1.0); MONOCYTES % (AUTO) 6.1 %; NEUTROPHILS % (AUTO) 72.5 %; PLT - PLATELET COUNT 244 10^3/uL (130-450); RED BLOOD COUNT 5.26 10^6/uL (4.70-6.10); WHITE BLOOD COUNT 6.9 x10^3/uL (4.8-10.8)
[2021-12-23 08:43] LABS: ALBUMIN 4.7 g/dL (3.2-5.5); ALBUMIN/GLOBULIN RATIO 1.4 (1.0-2.2); ALKALINE PHOSPHATASE 109 IU/L (42-121); ALT ALANINE AMINOTRANSFERASE 29 IU/L (10-60); AST ASPARTATE AMINOTRANSFERASE 25 IU/L (10-42); BILIRUBIN,TOTAL 0.6 mg/dL (0.2-1.0); BUN - BLOOD UREA NITROGEN 24 mg/dL (6-20); CALCIUM 9.9 mg/dL (8.5-10.3); CARBON DIOXIDE - CO2 27 mmol/L (21-32); CHLORIDE 106 mmol/L (101-111); CHOL/HDL RATIO 3.6 (<5.0); CHOLESTEROL 218 mg/dL; CREATININE 0.8 mg/dL (0.6-1.2); GFR - MDRD 101 (>89); GLUCOSE 140 mg/dL (70-100); HDL CHOLESTEROL 60 mg/dL; LDL CHOLESTEROL,CALCULATED 142 mg/dL; LDL/HDL RATIO 2.4 (<3.6); POTASSIUM 4.1 mmol/L (3.5-5.0); SODIUM 142 mmol/L (135-145); TRIGLYCERIDES 82 mg/dL; VLDL CHOLESTEROL 16 mg/dL
== END 2021-12-23 08:14 | disposition home or self-care (01) ==
LOC: LAB 08:13
PROVIDERS: ATTEND Nurse Practitioner
DX: I10 Essential (primary) hypertension (principal); Z13.220 Encounter for screening for lipoid disorders; Z12.5 Encounter for screening for malignant neoplasm of prostate
CPT/HCPCS: 36415; 80053; 80061; 83721; 84153; 85025

== ENCOUNTER 2021-12-30 09:44 | Outpatient (CLI) | payer BC ==
[2021-12-30 12:57] LABS: ESTIMATED AVERAGE GLUCOSE 100 mg/dL (70-100); HEMOGLOBIN A1c% 5.1 % (4.27-6.07)
== END 2021-12-30 09:45 | disposition home or self-care (01) ==
LOC: LAB 09:44
PROVIDERS: ATTEND Nurse Practitioner
DX: E11.9 Type 2 diabetes mellitus without complications (principal)
CPT/HCPCS: 36415; 83036

== ENCOUNTER 2022-03-10 06:53 | Outpatient (CLI) | payer BC | END 2022-03-10 06:54 | disposition home or self-care (01) | LOC: LAB 06:53 | DX: D35.01 Benign neoplasm of right adrenal gland (principal) | CPT/HCPCS: 36415; 82088; 82533; 83835; 84244 ==

== ENCOUNTER 2022-10-28 08:00 | Outpatient (CLI) | payer BC ==
--- NOTE | 2022-10-28 11:40 | XRAY Report ---
PROCEDURE: Ankle 3 View RT INDICATIONS: RIGHT ANKLE PAIN TECHNIQUE: 3 views of the ankle were acquired. COMPARISON: None. FINDINGS: Bones: Rounded calcification is noted distal to the fibula.. Ankle mortise is normally aligned. No suspicious bony lesions. Calcaneal spur is present. Soft tissues: No tibiotalar joint effusion. Achilles tendon appears normal. IMPRESSION: Rounded calcification distal to the fibula appearing chronic. Reviewed by: Amanda Awad MD on 10/28/2022 11:39 AM PDT Approved by: Amanda Awad MD on 10/28/2022 11:39 AM PDT Station ID: [id number]
== END 2022-10-28 23:59 | disposition home or self-care (01) ==
LOC: DI.WOS 08:00
PROVIDERS: ATTEND Physician Assistant Surgical
DX: M25.871 Other specified joint disorders, right ankle and foot (principal)

== ENCOUNTER 2023-03-09 10:48 | Emergency (ER) | payer BC ==
[2023-03-09] MEDS ORDERED: SODIUM CHLORIDE 0.9% 1,000 ML IV STA (10:57)
[2023-03-09] MEDS ORDERED: LACTATED RINGERS 1,000 ML IV STA (10:57)
[2023-03-09] MEDS ORDERED: METOCLOPRAMIDE 10 MG/2 ML VIAL IVP STA (10:57)
[2023-03-09] MEDS ORDERED: LOPERAMIDE 2 MG CAPSULE PO STA (10:58)
--- NOTE | 2023-03-09 10:59 | ED Physician Documentation ---
PD HPI ABD PAIN - Stated complaint Stated Complaint: VOMITING/DIARRHEA - History obtained from History obtained from: Patient - Additional information Additional information: 57-year-old gentleman with history of rectal cancer and ostomy for the last 3 years. He got sick 3 days ago with vomiting and diarrhea. No blood from either end. He has had a subjective fever. No clear sick contacts. PD PAST MEDICAL HISTORY - Past Medical History Cardiovascular: Hypertension, High cholesterol Respiratory: None Endocrine/Autoimmune: None GI: Hiatal hernia : None HEENT: Chronic vision loss Psych: Anxiety, Post traumatic stress disorder Musculoskeletal: Osteoarthritis Derm: None - Past Surgical History General: Bowel surgery, Colonoscopy, Other Ortho: Spine surgery - Present Medications Home Medications: Ambulatory Orders Medication Instructions Recorded Confirmed Amlodipine Besylate 10 mg PO DAILY 12/27/18 10/21/21 Cyclobenzaprine [Flexeril] 10 mg PO TID PRN 12/27/18 10/21/21 Escitalopram Oxalate [Lexapro] 20 mg PO DAILY 12/27/18 10/21/21 Valsartan/Hydrochlorothiazide 1 each PO DAILY 12/27/18 10/21/21 [Valsartan-Hctz 160-25 mg Tab] Famotidine 20 mg PO DAILY 07/29/19 10/21/21 Fluticasone [Flonase] 1 sprays YASMIN BID #16 gm 04/03/21 10/21/21 Metoprolol Succinate [Toprol Xl] 50 mg PO DAILY 04/03/21 10/21/21 Zolpidem [Ambien] 5 mg PO HS 04/03/21 04/03/21 Ondansetron Odt [Zofran] 4 mg TL Q6H PRN #10 tablet 03/09/23 - Allergies Allergies/Adverse Reactions: Allergies Allergy/AdvReac Type Severity Reaction Status Date / Time ketamine Allergy Unknown Verified 03/09/23 11:10 - Social History Smoking Status: Current some day smoker PD ED PE NORMAL - Vitals Vital signs reviewed: Yes - General General: Alert and oriented X 3, No acute distress - Cardiac Cardiac: RRR, No murmur - Respiratory Respiratory: No respiratory distress - Abdomen Abdomen: Other (Liquid filled ostomy on left side; hyperactive bowel sounds) - Neuro Neuro: Alert and oriented X 3, Normal speech Results - Vitals Vitals: Vital Signs - 24 hr 03/09/23 03/09/23 03/09/23 11:03 11:21 13:10 Temperature 36.4 C L Heart Rate 75 80 66 Respiratory 16 16 18 Rate Blood Pressure 150/100 H 146/108 H 155/102 H O2 Saturation 98 95 100 03/09/23 13:31 Temperature Heart Rate 73 Respiratory 14 Rate Blood Pressure 158/98 H O2 Saturation 99 Oxygen O2 Source Room air - Labs Labs: Laboratory Tests 03/09/23 03/09/23 11:12 11:12 WBC 5.4 RBC 4.58 L Hgb 13.3 L Hct 38.7 L MCV 84.5 MCH 29.0 MCHC 34.4 RDW 14.3 Plt Count 200 MPV 8.8 Neut # (Auto) 3.9 Lymph # (Auto) 1.0 L Stephens # (Auto) 0.4 Eos # (Auto) 0.1 Baso # (Auto) 0.0 Absolute Nucleated RBC 0.00 Nucleated RBC % 0.0 Sodium 134 L Potassium 3.5 Chloride 102 Carbon Dioxide 27 Anion Gap 5.0 L BUN 11 Creatinine 0.8 Estimated GFR (MDRD) 100 Glucose 104 Calcium 9.2 Total Bilirubin 0.7 AST 30 ALT 48 Alkaline Phosphatase 103 Total Protein 6.5 Albumin 4.3 Globulin 2.2 Albumin/Globulin Ratio 2.0 Lipase 78 PD Medical Decision Making - ED course ED course: 57-year-old with what sounds like viral gastroenteritis. Benign exam. Labs showing mild anemia on CBC and CMP is normal/unremarkable. He was administered 2 L of crystalloid here with improvement as well as some Toradol, Reglan and Imodium with improvement. Departure - Departure Disposition: 01 Home, Self Care Clinical Impression: Diarrhea, Vomiting Condition: Good Record reviewed to determine appropriate education?: Yes Instructions: ED Gastroenteritis Viral Prescriptions: Ondansetron Odt [Zofran] 4 mg TL Q6H PRN #10 tablet PRN Reason: Nausea / Vomiting Comments: I did send a prescription for Zofran [facility] in [place]. You can take Imodium as needed [id number] for the diarrhea. Return if not better in the next 48 hours, sooner for new or worsening symptoms. Forms: PCP List Discharge Date/Time: 03/09/23 13:31
[2023-03-09 11:21] LABS: BASOPHILS % (AUTO) 0.4 %; EOSINOPHILS # (AUTO) 0.1 10^3/uL (0.0-0.7); EOSINOPHILS % (AUTO) 1.3 %; HCT - HEMATOCRIT 38.7 % (42.0-52.0); HGB - HEMOGLOBIN 13.3 g/dL (14.0-18.0); LYMPHOCYTES % (AUTO) 19.1 %; MEAN CORPUSCULAR HGB CONC 34.4 g/dL (32.0-36.0); MEAN CORPUSCULAR VOLUME 84.5 fL (80.0-94.0); MEAN PLATELET VOLUME 8.8 fL (7.4-11.4); MONOCYTES # (AUTO) 0.4 10^3/uL (0.0-1.0); MONOCYTES % (AUTO) 7.5 %; NEUTROPHILS # (AUTO) 3.9 10^3/uL (1.5-6.6); NEUTROPHILS % (AUTO) 71.5 %; PLT - PLATELET COUNT 200 10^3/uL (130-450); RED BLOOD COUNT 4.58 10^6/uL (4.70-6.10); RED CELL DISTRIBUTION WIDTH 14.3 % (12.0-15.0); WHITE BLOOD COUNT 5.4 x10^3/uL (4.8-10.8)
[2023-03-09] MEDS ORDERED: KETOROLAC 15 MG/ML VIAL IVP STA (11:29)
[2023-03-09 11:35] LABS: ALBUMIN 4.3 g/dL (3.2-5.5); BILIRUBIN,TOTAL 0.7 mg/dL (0.2-1.0); CALCIUM 9.2 mg/dL (8.5-10.3); CREATININE 0.8 mg/dL (0.6-1.3); POTASSIUM 3.5 mmol/L (3.5-4.5); TOTAL PROTEIN 6.5 g/dL (6.4-8.9)
[2023-03-09 13:40] VITALS: BP 158/98; O2SAT 99
== END 2023-03-09 13:31 | disposition home or self-care (01) ==
LOC: ED 10:48
DX: R19.7 Diarrhea, unspecified (principal); R11.10 Vomiting, unspecified; I10 Essential (primary) hypertension; F17.200 Nicotine dependence, unspecified, uncomplicated
CPT/HCPCS: 36415; 80053; 83690; 85025; 96361; 96374; 96375; 99283; A9270; J2765; J7120

== ENCOUNTER 2023-03-18 06:51 | Outpatient (CLI) | payer BC ==
[2023-03-18 07:43] LABS: BUN - BLOOD UREA NITROGEN 17 mg/dL (6-20); CALCIUM 9.9 mg/dL (8.5-10.3); CARBON DIOXIDE - CO2 28 mmol/L (21-32); CHLORIDE 106 mmol/L (101-111); CHOL/HDL RATIO 2.8 (<5.0); CHOLESTEROL 124 mg/dL; CREATININE 0.7 mg/dL (0.6-1.3); GFR - MDRD 117 (>89); GLUCOSE 129 mg/dL (74-104); HDL CHOLESTEROL 44 mg/dL; LDL CHOLESTEROL,CALCULATED 62 mg/dL; LDL/HDL RATIO 1.4 (<3.6); POTASSIUM 4.2 mmol/L (3.5-4.5); SODIUM 139 mmol/L (135-145); TRIGLYCERIDES 92 mg/dL (48-352); VLDL CHOLESTEROL 18 mg/dL
[2023-03-18 11:36] LABS: ESTIMATED AVERAGE GLUCOSE 97 mg/dL (70-100)
== END 2023-03-18 06:52 | disposition home or self-care (01) ==
LOC: LAB 06:51
PROVIDERS: ATTEND Nurse Practitioner
DX: E11.9 Type 2 diabetes mellitus without complications (principal); E78.5 Hyperlipidemia, unspecified
CPT/HCPCS: 36415; 80048; 80061; 83036; 83721

== ENCOUNTER 2023-04-08 11:35 | Outpatient (CLI) | payer BC ==
[2023-04-08] MEDS ORDERED: DIATRIZOATE MEGLU/DIATRIZO SOD 30 ML BOTTLE PO ONE ×2 (11:58→18:48)
--- NOTE | 2023-04-08 16:08 | CT Report ---
PROCEDURE: Abdomen/Pelvis W INDICATIONS: RECTAL CA CONTRAST: 100ml omni 300 TECHNIQUE: After the administration of intravenous contrast, a CT scan of the abdomen and pelvis was performed. Images were recorded and evaluated at appropriate window settings. Reformats: coronal and sagittal. F or radiation dose reduction, the following was used: automated exposure control, adjustment of mA and /or kV according to patient size. COMPARISON: CT 01/05/2019 FINDINGS: Image quality: Excellent. Lung bases and heart: 6 x 8 mm solid nodule, right lower lobe (series 3, image 101), stable since 201 9. Liver: 2.5 cm segment 7 hepatic mass (series 2, image 20). This was not clearly identified on the larissa or exam. Gallbladder and biliary tree: No radiopaque stones or wall thickening. No biliary dilation. Spleen: No splenomegaly. Pancreas: No pancreatic ductal dilation. Adrenals: Stable 2.3 cm right adrenal nodule since 2019. Kidneys and ureters: No hydronephrosis. No renal cystic lesion which requires follow up. No solid mas s. Bowel and peritoneum: No bowel distension. No pathologic free fluid. Proctectomy and left lower quadr ant colostomy. Colonic diverticulosis without evidence of diverticulitis. Presacral soft tissue atten uation. Lymph nodes: No central or retroperitoneal adenopathy. Vessels: No infrarenal aortic aneurysm. PELVIS Reproductive organs: Unremarkable. Bladder: No abnormal wall thickening, accounting for underdistention. Pelvic lymph nodes: No pelvic adenopathy by size criteria. Bones: Avascular necrosis of the femoral heads, without cortical collapse. No aggressive osseous abno rmality. Other: No significant ventral or inguinal hernia. IMPRESSION: Proctectomy and left lower quadrant colostomy. Mild presacral soft tissue attenuation, presumably pos ttreatment change. Subtle enhancing 2.5 cm segment 7 hepatic mass (series 2, image 20). Recommend liver MRI with contras t for complete characterization. Stable pulmonary nodule right lower lobe and right adrenal nodule compared with 2019, favoring a gladis gn etiology. Avascular necrosis of the femoral heads, without cortical collapse. Reviewed by: Reid Oneal MD on 04/08/2023 4:07 PM PST Approved by: Reid Oneal MD on 04/08/2023 4:07 PM PST Station ID: [id number]
--- NOTE | 2023-04-08 16:47 | CT Report ---
PROCEDURE: Chest W INDICATIONS: RECTAL CA CONTRAST: 100ml omni 300 TECHNIQUE: After the administration of intravenous contrast, a CT scan of the chest was performed. Images were recorded and evaluated at appropriate window settings. Reformats: axial MIP of the chest, coronal and sagittal. For radiation dose reduction, the following was used: automated exposure control, adjustme nt of mA and/or kV according to patient size. COMPARISON: CT 01/05/2019 FINDINGS: Image quality: Excellent. Lungs and pleura: No consolidation. No pleural effusions. No pneumothorax. Stable 8 x 6 mm solid nod ule in the right lower lobe compared with 2019; this is favored to represent a benign pulmonary nodul e. 5 to 6 mm juxtapleural nodule with smooth margins in the right middle lobe, presumably a benign in trapulmonary lymph node (series 3, image 231). Mediastinum: Heart size is normal. No pericardial effusion. No large vessel abnormality. No mediastin al adenopathy by size criteria. Chest wall and lower neck: Thyroid is unremarkable. No axillary or supraclavicular adenopathy by size . Bones: No aggressive osseous abnormality. Upper Abdomen: Subtle segment 7 hepatic lesion measuring 1.9 cm. Stable right adrenal nodule. IMPRESSION: No evidence of metastatic disease of the chest. Please see dedicated abdomen pelvis CT for further discussion regarding a liver lesion. Reviewed by: Reid Oneal MD on 04/08/2023 4:46 PM PST Approved by: Reid Oneal MD on 04/08/2023 4:46 PM PST Station ID: [id number]
[2023-04-08] MEDS ORDERED: iohexoL-300 100 ML VIAL IVP ONE (18:49)
== END 2023-04-08 11:36 | disposition home or self-care (01) ==
LOC: DI 11:35
PROVIDERS: ATTEND Internal Medicine
DX: C20 Malignant neoplasm of rectum (principal); K76.89 Other specified diseases of liver; Z90.79 Acquired absence of other genital organ(s); Z93.3 Colostomy status; R91.1 Solitary pulmonary nodule; E27.8 Other specified disorders of adrenal gland; M87.9 Osteonecrosis, unspecified
CPT/HCPCS: 71260; 74177; Q9963; Q9967

== ENCOUNTER 2023-04-30 07:40 | Outpatient (CLI) | payer BC | END 2023-04-30 07:41 | disposition home or self-care (01) | LOC: LAB 07:40 | PROVIDERS: ATTEND Internal Medicine | DX: C20 Malignant neoplasm of rectum (principal) | CPT/HCPCS: 36415; 82378 ==

== ENCOUNTER 2023-12-21 14:55 | Emergency (ER) | payer OTHER, BC ==
[2023-12-21 15:08] VITALS: BP 150/96; O2SAT 97
[2023-12-21] MEDS: TETANUS/DIPHTHERIA/PERTUSSIS 0.5 ML SYRINGE IM ONE (15:12)
--- NOTE | 2023-12-21 15:14 | ED Physician Documentation ---
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 He has wounds to both forearms. No other injuries. Manage) PD PAST MEDICAL HISTORY - Past Medical History Past Medical History: Yes Cardiovascular: Hypertension, High cholesterol Respiratory: None Endocrine/Autoimmune: None GI: Hiatal hernia : None HEENT: Chronic vision loss Psych: Anxiety, Post traumatic stress disorder Musculoskeletal: Osteoarthritis Derm: None - Past Surgical History Past Surgical History: Yes General: Bowel surgery, Colonoscopy, Other Ortho: Spine surgery - Present Medications Home Medications: Ambulatory Orders Medication Instructions Recorded Confirmed Amlodipine Besylate 10 mg PO DAILY 12/27/18 10/21/21 Cyclobenzaprine [Flexeril] 10 mg PO TID PRN 12/27/18 10/21/21 Escitalopram Oxalate [Lexapro] 20 mg PO DAILY 12/27/18 10/21/21 Valsartan/Hydrochlorothiazide 1 each PO DAILY 12/27/18 10/21/21 [Valsartan-Hctz 160-25 mg Tab] Famotidine 20 mg PO DAILY 07/29/19 10/21/21 Fluticasone [Flonase] 1 sprays YASMIN BID #16 gm 04/03/21 10/21/21 Metoprolol Succinate [Toprol Xl] 50 mg PO DAILY 04/03/21 10/21/21 Zolpidem [Ambien] 5 mg PO HS 04/03/21 04/03/21 Ondansetron Odt [Zofran] 4 mg TL Q6H PRN #10 tablet 03/09/23 Amox/Clav 875/125 [Augmentin] 1 each PO Q12H #10 tablet 12/21/23 - Allergies Allergies/Adverse Reactions: Allergies Allergy/AdvReac Type Severity Reaction Status Date / Time ketamine Allergy Unknown Verified 12/21/23 15:03 - Social History Does the pt smoke?: No Smoking Status: Never smoker Does the pt drink ETOH?: No Does the pt have substance abuse?: Yes Substance Use and Type: Marijuana - Immunizations Immunizations are current?: Yes - POLST Patient has POLST: No PD ED PE NORMAL - Vitals Vital signs reviewed: Yes - General General: Alert and oriented X 3, No acute distress - Extremities Extremities: Other (Shallow lacerations on both forearms. He does have some tenderness over the left dorsal wrist with mildly limited range of motion.) - Neuro Neuro: Alert and oriented X 3 Results - Vitals Vitals: Vital Signs - 24 hr 12/21/23 15:03 Temperature 36.7 C Heart Rate 72 Respiratory 18 Rate Blood Pressure 150/96 H O2 Saturation 97 Oxygen O2 Source Room air - Rads (name of study) L wrist XR-NAD Relevant Findings:: Final report received, EMP independent interpretation of test PD Medical Decision Making - ED course Complexity details: other (L&I paperwork [id number] completed and submitted) ED course: Dog bites to both arms. Some concern for bony injury in the left wrist and will obtain x-ray. He needs his tetanus updated. Wounds were already cleansed prior to arrival. Departure - Departure Disposition: 01 Home, Self Care Clinical Impression: Dog bite of right forearm Qualifiers: Encounter type: initial encounter Qualified Code(s): S51.851A - Open bite of right forearm, initial encounter Dog bite of left wrist Qualifiers: Encounter type: initial encounter Qualified Code(s): S61.552A - Open bite of left wrist, initial encounter Condition: Good Record reviewed to determine appropriate education?: Yes Instructions: ED Bite Animal General Prescriptions: Amox/Clav 875/125 [Augmentin] 1 each PO Q12H #10 tablet Comments: I sent your prescription electronically [facility] at the corner of [facility] [address] in [place]. Keep an eye on the wounds, if they start to look infected with redness, swelling, drainage, increased pain please return for reevaluation. For wound care fine to wash with soap and water and keep covered with a Band-Aid with bacitracin ointment. Note for your records that you received a Tdap shot today. Forms: PCP List Discharge Date/Time: 12/21/23 15:38
[2023-12-21] MEDS: AMOX/CLAV 875 MG/125 MG TABLET PO STA (15:20)
[2023-12-21] MEDS: BACITRACIN ZINC OINT 1 PACKET TOP STA (15:34)
--- NOTE | 2023-12-21 15:48 | XRAY Report ---
PROCEDURE: Wrist 3+V LT INDICATIONS: dog TECHNIQUE: 4 views of the wrist were acquired. COMPARISON: None. FINDINGS: Bones: No fractures or dislocations. No suspicious bony lesions. Soft tissues: No suspicious soft tissue calcifications or masses. No radiopaque foreign body or soft tissue gas. IMPRESSION: No acute bony abnormality. Reviewed by: Dimitris Yu MD on 12/21/2023 3:47 PM PDT Approved by: Dimitris Yu MD on 12/21/2023 3:47 PM PDT Station ID: [id number]
== END 2023-12-21 15:38 | disposition home or self-care (01) ==
LOC: ED 14:55
DX: S51.851A Open bite of right forearm, initial encounter (principal); S61.552A Open bite of left wrist, initial encounter; W54.0XXA Bitten by dog, initial encounter; Y93.K9 Activity, other involving animal care; Y92.89 Other specified places as the place of occurrence of the external cause; Y99.0 Civilian activity done for income or pay
CPT/HCPCS: 1040M; 73110; 90471; 90715; 99283; 99284; A9270